=== PATIENT | male | born 1965 | race Caucasian/White ===

== ENCOUNTER 2022-05-27 12:36 | Emergency (ER) | payer SELFPAY ==
[~2022-05-27] VITALS: Ht 188 cm; Wt 86.2 kg
[2022-05-27] MEDS ORDERED: TETANUS-DIPTH-ACEL PERTUSSIS 0.5ML SYR Tdap IM ONE (13:00)
[2022-05-27 13:12] VITALS: BP 136/86
== END 2022-05-27 15:43 | disposition home or self-care (01) ==
LOC: ER 12:36
DX: S61.210A Laceration without foreign body of right index finger without damage to nail, initial encounter (principal); I10 Essential (primary) hypertension; F17.210 Nicotine dependence, cigarettes, uncomplicated; W25.XXXA Contact with sharp glass, initial encounter; Y93.89 Activity, other specified; Y92.89 Other specified places as the place of occurrence of the external cause; Y99.8 Other external cause status
CPT/HCPCS: 12002; 90471; 90715; 99283; J2001

== ENCOUNTER 2022-06-06 15:24 | Emergency (ER) | payer SELFPAY ==
[~2022-06-06] VITALS: Ht 188 cm; Wt 102.1 kg
[2022-06-06 16:16] VITALS: BP 136/86
== END 2022-06-06 18:57 | disposition home or self-care (01) ==
LOC: ER 15:24
DX: S61.210D Laceration without foreign body of right index finger without damage to nail, subsequent encounter (principal); I10 Essential (primary) hypertension; F17.210 Nicotine dependence, cigarettes, uncomplicated; X58.XXXD Exposure to other specified factors, subsequent encounter